=== PATIENT | female | born 1960 | race Caucasian/White ===

== ENCOUNTER 2018-01-05 23:08 | Observation (INO) | payer OTHER ==
[2018-01-06] MEDS ORDERED: NS 1,000 ML IV ONE (00:04)
--- NOTE | 2018-01-06 00:11 | EDPHY ---
H & P Stated Complaint: dizzy, nausea Time Seen by Provider: 01/05/18 23:23 HPI/ROS: HPI The patient presents with dizziness which began 4 days ago on January 02 at about 2:00 a.m. When she awoke to use the bathroom she noticed that she felt dizzy like the room was spinning and she was "gyrating". She went back to bed, however the dizziness has persisted ever since. It has been somewhat intermittent, she feels it worse at night. It feels as if she is drunk she says. She has not had any falls because of this. Her said she is walking with a wide-based gait at home. The dizziness is most severe when she turns her head to the left. She does not have any difficulty speaking, weakness of her arms or legs, confusion, or vomiting, though she has felt nauseated. She says that she has had a headache for many months now which is global and throbbing. It has become worse since her dizziness began 4 days ago. She is taking aspirin and ibuprofen for this with some improvement. She has not been drinking much fluid because she does not want after walk to the bathroom. She has been in bed for much of the last several days. She denies any changes to her hearing, tinnitus, recent URI type symptoms. She has not had any chest pain or shortness of breath, no leg swelling. She has no changes to her medications. She is relatively healthy and has no prior history of atrial fibrillation. REVIEW OF SYSTEMS 10 systems were reviewed and negative with the exception of the elements mentioned in the history of present illness. PMHx: History of pulmonary embolism in 2000 following a hysterectomy, she says her pulmonary function has been diminished ever since, takes vitamin-D supplements, primary care doctor is Dr. Meyer in [facility] Hx: Here with her PHYSICAL General Appearance: Alert, no distress Eyes: Pupils equal and round no pallor or injection ENT, Mouth: Mucous membranes moist Respiratory: There are no retractions, lungs are clear to auscultation Cardiovascular: Irregularly irregular Gastrointestinal: Abdomen is soft and non-tender, no masses, bowel sounds normal Neurological: A&Ox3, cranial nerves 2-12 intact, there is no nystagmus, dizziness is provoked with turning her head to the left, 5/5 strength in upper and lower extremities which is symmetric, normal finger to nose testing Skin: Warm and dry, no rashes Musculoskeletal: Neck is supple non tender Extremities: symmetrical, full range of motion Psychiatric: Patient is oriented X 3, there is no agitation Source: Patient Exam Limitations: No limitations - Personal History Current Tetanus Diphtheria and Acellular Pertussis (TDAP): Yes - Medical/Surgical History Hx Asthma: No Hx Chronic Respiratory Disease: No Hx Diabetes: No Hx Cardiac Disease: No Hx Renal Disease: No Hx Cirrhosis: No Hx Alcoholism: No Hx HIV/AIDS: No Hx Splenectomy or Spleen Trauma: No Other PMH: PE 2000 - Social History Smoking Status: Never smoked Constitutional: Initial Vital Signs Temperature (C) 36.3 C 01/05/18 23:15 Heart Rate 128 H 01/05/18 23:15 Respiratory Rate 20 01/05/18 23:15 Blood Pressure 184/105 H 01/05/18 23:15 O2 Sat (%) 94 01/05/18 23:15 O2 Delivery Mode Room Air Allergies/Adverse Reactions: No Known Allergies Allergy (Unverified 01/05/18 23:11) Home Medications: Medication Instructions Recorded NK [No Known Home Meds] 01/05/18 Medical Decision Making - Diagnostics EKG Interpretation: EKG: Complete interpretation has been separately recorded in the [email or web address] archive. Summary impression: Atrial fibrillation with rate of about 100-120 Imaging Results: Chest x-ray single view demonstrates mild cardiomegaly, interpreted by me, radiology interpretation pending. 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 Katz of Radiology. Imaging: Discussed imaging studies w/ financial services auditor Radiologist, I viewed and interpreted images myself Differential Diagnosis: This is a relatively healthy 57-year-old female with only significant past medical history provoked pulmonary embolism in 2000 who presents from home with 4 days of intermittent vertigo type symptoms which are somewhat positional associated with headache, nausea. On exam, she is in new onset atrial fibrillation with slightly fast rate in the 120s. She does not have any cerebellar findings on her neurologic exam, however CVA is a concern for me given her atrial fibrillation. Plan for IV fluid bolus, basic labs, chest x-ray CT scan of head. In the emergency department, patient received 1 L of normal saline with persistent atrial fibrillation with RVR. Thus, she was given diltiazem with improvement in her rate to the low 100s. She continued to remain symptomatic. CT scan of head did demonstrate old CVA without any signs of acute infarct. I do think she would benefit from an MRI for further evaluation of cerebellum. It is unclear if 4 days ago she had a CVA and that is what is causing her persistent vertigo with underlying atrial fibrillation as cause. She does not appear to have any signs or symptoms of acute pulmonary embolism, ACS, new heart failure as cause of atrial fibrillation. It could be that her atrial fibrillation is causing her to feel vertiginous as well. Given that she has had 4 days of symptoms, she is not a tPA candidate at this time. I will admit her to the hospitalist service for further evaluation. - Data Points Laboratory Results: Laboratory Results 01/06/18 00:13 01/06/18 00:13 01/06/18 01/06/18 01/06/18 00:22 00:17 00:13 WBC RBC Hgb Hct MCV MCH MCHC RDW Plt Count MPV Neut % (Auto) Lymph % (Auto) Elk % (Auto) Eos % (Auto) Baso % (Auto) Nucleat RBC Rel Count Absolute Neuts (auto) Absolute Lymphs (auto) Absolute Monos (auto) Absolute Eos (auto) Absolute Basos (auto) Absolute Nucleated RBC Immature Gran % Immature Gran # PT INR APTT D-Dimer Sodium 142 mEq/L mEq/L (135-145) Potassium 4.1 mEq/L mEq/L (3.3-5.0) Chloride 108 mEq/L mEq/L (97-110) Carbon Dioxide 25 mEq/l mEq/l (22-31) Anion Gap 9 mEq/L mEq/L (6-14) BUN 21 mg/dL mg/dL (7-23) Creatinine 0.9 mg/dL mg/dL (0.6-1.0) Estimated GFR > 60 Glucose 169 mg/dL H mg/dL (70-100) Calcium 9.6 mg/dL mg/dL (8.5-10.4) POC Troponin I 0.00 ng/mL ng/mL (0.00-0.08) NT-Pro-B Natriuret Pep 410 pg/mL H pg/mL (0-125) TSH 5.850 uIU/mL H uIU/mL (0.465-4.680) 01/06/18 01/06/18 00:13 00:13 WBC 7.34 10^3/uL 10^3/uL (3.80-9.50) RBC 4.84 10^6/uL 10^6/uL (4.18-5.33) Hgb 14.9 g/dL g/dL (12.6-16.3) Hct 44.5 % % (38.0-47.0) MCV 91.9 fL fL (81.5-99.8) MCH 30.8 pg pg (27.9-34.1) MCHC 33.5 g/dL g/dL (32.4-36.7) RDW 12.6 % % (11.5-15.2) Plt Count 215 10^3/uL 10^3/uL (150-400) MPV 11.8 fL H fL (8.7-11.7) Neut % (Auto) 62.4 % % (39.3-74.2) Lymph % (Auto) 27.2 % % (15.0-45.0) Elk % (Auto) 7.4 % % (4.5-13.0) Eos % (Auto) 2.0 % % (0.6-7.6) Baso % (Auto) 0.7 % % (0.3-1.7) Nucleat RBC Rel Count 0.0 % % (0.0-0.2) Absolute Neuts (auto) 4.58 10^3/uL 10^3/uL (1.70-6.50) Absolute Lymphs (auto) 2.00 10^3/uL 10^3/uL (1.00-3.00) Absolute Monos (auto) 0.54 10^3/uL 10^3/uL (0.30-0.80) Absolute Eos (auto) 0.15 10^3/uL 10^3/uL (0.03-0.40) Absolute Basos (auto) 0.05 10^3/uL 10^3/uL (0.02-0.10) Absolute Nucleated RBC 0.00 10^3/uL 10^3/uL (0-0.01) Immature Gran % 0.3 % % (0.0-1.1) Immature Gran # 0.02 10^3/uL 10^3/uL (0.00-0.10) PT 12.7 SEC SEC (12.0-15.0) INR 0.93 (0.83-1.16) APTT 24.6 SEC SEC (23.0-38.0) D-Dimer 0.28 ug/mLFEU ug/mLFEU (0.00-0.50) Sodium Potassium Chloride Carbon Dioxide Anion Gap BUN Creatinine Estimated GFR Glucose Calcium POC Troponin I NT-Pro-B Natriuret Pep TSH Medications Given: Sodium Chloride (Ns) 1,000 mls @ 100 mls/hr IV CONT ROSA Stop: 07/05/18 01:14 Last Admin: 01/06/18 02:29 Dose: 1,000 mls Diltiazem/Dextrose (Diltiazem 125mg/125ml (Premix)) 125 mls @ 0 mls/hr IV CONT ROSA; Per Protocol PRN Reason: Protocol Stop: 07/05/18 01:14 Last Admin: 01/06/18 02:29 Dose: 125 mls Discontinued Medications Diltiazem HCl (Cardizem 25 Mg/5 Ml Vial) 15 mg IVP EDNOW ONE Stop: 01/06/18 00:54 Last Admin: 01/06/18 00:56 Dose: 15 mg Sodium Chloride (Ns) 1,000 mls @ 0 mls/hr IV EDNOW ONE; Wide Open PRN Reason: Protocol Stop: 01/06/18 00:05 Last Admin: 01/06/18 00:19 Dose: 1,000 mls Point of Care Test Results: Chemistry 01/06/18 00:22 POC Troponin I 0.00 ng/mL ng/mL (0.00-0.08) Departure - Departure Disposition: [facility] Inpatient Acute Clinical Impression: Atrial fibrillation with rapid ventricular response, Vertigo Condition: Fair
[2018-01-06 00:28] LABS: PLATELET COUNT 215 10^3/uL (150-400)
[2018-01-06 00:38] LABS: INR 0.93 (0.83-1.16); PROTIME(PATIENT) 12.7 SEC (12.0-15.0)
[2018-01-06] MEDS ORDERED: DILTIAZEM 25 MG/5 ML VIAL IVP ONE (00:53)
[2018-01-06] MEDS ORDERED: ONDANSETRON 4 MG/2 ML VIAL IVP PRN (01:08)
[2018-01-06] MEDS ORDERED: PROMETHAZINE HCL 25 MG/ML INJ IVP PRN (01:08)
[2018-01-06] MEDS ORDERED: ONDANSETRON DISINTEGRATING 4 MG TAB PO PRN (01:08)
[2018-01-06] MEDS ORDERED: MECLIZINE HCL 25 MG TAB PO PRN (01:13)
[2018-01-06] MEDS ORDERED: DILTIAZEM HCL/D5W 125 ML IV SCH (01:15)
--- NOTE | 2018-01-06 02:04 | PDGENHP ---
History and Physical - Chief Complaint Dizziness - History of Present Illness 57 yo F w/ hx of migraines presents with dizziness. She tells me she has intermittently felt like the world is spinning around her for 4 days. The dizziness is worsened by turning her head. She has also had intermittent nausea related to this. During the first day she felt subjective fevers but denies other infectious symptoms. As mentioned previously she does have history of migraines. She denies other medical problems and does not take medications regularly. She has had no prior similar episodes. In the ED her neurologic evaluation is non-focal. Cardiac monitoring did reveal atrial fibrillation. The patient does not have an existing AF diagnosis. She states that she does feel an odd feeling of irregularity in her chest, but this has been going on for a long time and she thought it was normal. In addition, CTH demonstrates old stroke, which she has no knowledge of. She denies any focal neurologic symptoms at this time. Case discussed with ED physician Dr. Scott; records reviewed and summarized above. History Information - Allergies/Home Medication List Allergies/Adverse Reactions: No Known Allergies Allergy (Unverified 01/05/18 23:11) Home Medications: NK [No Known Home Meds] 01/05/18 [Last Taken Unknown] I have personally reviewed and updated: family history, medical history - Past Medical History migraines - Surgical History Reports: hysterectomy - Family History Positive for: CAD - Social History Smoking Status: Never smoked Review of Systems Review of Systems: ROS: 10pt was reviewed & negative except for what was stated in HPI & below Physical Exam Physical Exam: Temp Pulse Resp BP Pulse Ox 36.5 C 107 H 14 149/94 H 93 01/06/18 01:46 01/06/18 01:46 01/06/18 01:46 01/06/18 01:46 01/06/18 01:46 Constitutional: not in pain, obese Eyes: PERRL, EOMI Ears, Nose, Mouth, Throat: moist mucous membranes, no oral mucosal ulcers Cardiovascular: regular rate and rhythym, no murmur, rub, or gallop Respiratory: no respiratory distress, clear to auscultation Gastrointestinal: normoactive bowel sounds, soft, non-tender abdomen Skin: warm, normal color Musculoskeletal: full muscle strength, no muscle tenderness Neurologic: AAOx3, sensation intact bilaterally, CN II-XII Intact, No weakness, No numbness, No facial droop Psychiatric: interacting appropriately, not anxious Lab Data & Imaging Review 01/06/18 00:13 01/06/18 00:13 WBC 7.34 10^3/uL (3.80-9.50) 01/06/18 00:13 RBC 4.84 10^6/uL (4.18-5.33) 01/06/18 00:13 Hgb 14.9 g/dL (12.6-16.3) 01/06/18 00:13 Hct 44.5 % (38.0-47.0) 01/06/18 00:13 MCV 91.9 fL (81.5-99.8) 01/06/18 00:13 MCH 30.8 pg (27.9-34.1) 01/06/18 00:13 MCHC 33.5 g/dL (32.4-36.7) 01/06/18 00:13 RDW 12.6 % (11.5-15.2) 01/06/18 00:13 Plt Count 215 10^3/uL (150-400) 01/06/18 00:13 MPV 11.8 fL (8.7-11.7) H 01/06/18 00:13 Neut % (Auto) 62.4 % (39.3-74.2) 01/06/18 00:13 Lymph % (Auto) 27.2 % (15.0-45.0) 01/06/18 00:13 Stanley % (Auto) 7.4 % (4.5-13.0) 01/06/18 00:13 Eos % (Auto) 2.0 % (0.6-7.6) 01/06/18 00:13 Baso % (Auto) 0.7 % (0.3-1.7) 01/06/18 00:13 Nucleat RBC Rel Count 0.0 % (0.0-0.2) 01/06/18 00:13 Absolute Neuts (auto) 4.58 10^3/uL (1.70-6.50) 01/06/18 00:13 Absolute Lymphs (auto) 2.00 10^3/uL (1.00-3.00) 01/06/18 00:13 Absolute Monos (auto) 0.54 10^3/uL (0.30-0.80) 18 00:13 Absolute Eos (auto) 0.15 10^3/uL (0.03-0.40) 01/06/18 00:13 Absolute Basos (auto) 0.05 10^3/uL (0.02-0.10) 18 00:13 Absolute Nucleated RBC 0.00 10^3/uL (0-0.01) 01/06/18 00:13 Immature Gran % 0.3 % (0.0-1.1) 01/06/18 00:13 Immature Gran # 0.02 10^3/uL (0.00-0.10) 01/06/18 00:13 PT 12.7 SEC (12.0-15.0) 01/06/18 00:13 INR 0.93 (0.83-1.16) 01/06/18 00:13 APTT 24.6 SEC (23.0-38.0) 01/06/18 00:13 D-Dimer 0.28 ug/mLFEU (0.00-0.50) 01/06/18 00:13 Sodium 142 mEq/L (135-145) 01/06/18 00:13 Potassium 4.1 mEq/L (3.3-5.0) 01/06/18 00:13 Chloride 108 mEq/L (97-110) 01/06/18 00:13 Carbon Dioxide 25 mEq/l (22-31) 01/06/18 00:13 Anion Gap 9 mEq/L (6-14) 01/06/18 00:13 BUN 21 mg/dL (7-23) 01/06/18 00:13 Creatinine 0.9 mg/dL (0.6-1.0) 01/06/18 00:13 Estimated GFR > 60 01/06/18 00:13 Glucose 169 mg/dL (70-100) H 01/06/18 00:13 Calcium 9.6 mg/dL (8.5-10.4) 01/06/18 00:13 POC Troponin I 0.00 ng/mL (0.00-0.08) 01/06/18 00:22 NT-Pro-B Natriuret Pep 410 pg/mL (0-125) H 01/06/18 00:13 TSH 5.850 uIU/mL (0.465-4.680) H 01/06/18 00:17 Imaging Review: CTH Prelim: R post parietal focal atrophy c/w remote infarct nothing acute. ALLI Visualized and Interpreted EKG results: Yes EKG Interpretation: Positive for: other (Afib) Assessment & Plan Assessment: 57 yo F w/ hx of migraines presents with vertigo and found to be in atrial fibrillation. Plan: 1. Vertigo - Most likely peripheral, benign etiology noting lack of focal neurologic symptoms, positional exacerbation, and overall mild nature. She does have history of migraines so this could be contributing. In addition, she experienced subjective fevers a few days ago so viral etiology is also possible. However, noting new AF and imaging findings consistent with prior stroke, it is reasonable to rule out central etiology with MRI. Symptoms have been present for 4 days so she is well outside window for intervention. - Conservative management with mIVF, anti-emetics PRN - MRI brain ordered to rule out central etiology - Neurology consult placed noting imaging findings of prior stroke 2. Atrial fibrillation - Unclear if this is related to presenting symptoms. My suspicion is that she has been in atrial fibrillation for some time and is minimally symptomatic. She states that she has noticed an odd sensation in her chest for a long time but thought this was normal. [id number] of at least 3 so indicated for anticoagulation, especially noting evidence of prior stroke. - Monitor on telemetry - Diltiazem gtt overnight - TTE for further evaluation - Check TSH - MRI brain ordered to rule out acute stroke prior to starting anticoagulation 3. Remote CVA - CTH on admission reveals evidence of prior R parietal stroke. The patient has no knowledge of this and denies symptoms. - MRI as above - TTE w/ bubble ordered - Lipid panel, A1c with morning labs - Neurology consult placed - Will need ASA, statin Diet - Regular Code - Full Ppx - SCDs Dispo - Admit under observation status
[2018-01-06] MEDS: NS 1,000 ML IV SCH ×2 (02:29→11:37)
--- NOTE | 2018-01-06 06:16 | CPEKG ---
Test Reason : OPEN Blood Pressure : / mmHG Vent. Rate : 117 BPM Atrial Rate : 104 BPM P-R Int : 176 ms QRS Dur : 085 ms QT Int : 331 ms P-R-T Axes : 000 056 -15 degrees QTc Int : 462 ms Atrial fibrillation Confirmed by Josee Scott ([id number]) on 01/06/2018 6:16:26 AM Referred By: Confirmed By:Josee Scott
[2018-01-06 09:30] LABS: PLATELET COUNT 187 10^3/uL (150-400)
--- NOTE | 2018-01-06 11:00 | NEUROPROG ---
Assessment: HOSPITAL NEUROLOGY CONSULT REQUESTING: Tino Grady MD REASON: dizziness, abnormal CT HPI: 57 year old woman with a history of migraine who presented to the ED last night with 4 days of vertigo. She states 4 days ago she developed sudden onset of room-spinning dizziness associated with nausea. Dizziness worsened with head movement, particularly to the right. Severe bouts tended to last hours, though vertigo never completely subsided. She is feeling better this AM. She did note gait instability. No diplopia, vision loss, speech change, hearing change, weakness, sensory loss, OHARA. Denies prior history of vertigo. She was found to be in afib in the ED. CT head wo done in ED was interpreted as a chronic right posterior parietal wedge-shaped area of encephalomalacia. ROS: As per the HPI, otherwise a complete 12 point ROS was performed and is negative ALLERGIES AND MEDS: As recorded in the EMR - reviewed and reconciled PFSH: As per the intake H&P by Dr. Grady from today EXAM: VS reviewed in EMR GEN: WDWN laying in NAD HEENT: NCAT, sclera anicteric, conjunctiva not injected, MMM, oropharynx clear, no scalp tenderness NECK: supple, nontender, no meningismus CV: irreg irreg s1 s2 wo m/r/c/g. Carotid pulses 2+ wo bruit NEURO: MS: awake, alert, oriented to all spheres. Speech nondysarthric. No language disturbance. Follows commands. Attends to both sides. Recent/remote memory grossly intact. Mood euthymic. Good fund of knowledge. CN: pupils 3mm round and reactive. Unable to visualize fundi. VFF. Primary gaze centered. Full ocular motility. No nystagmus. No ptosis. Facial sensation preserved. Face symmetric. Hearing grossly intact to finger rub. Palatoglossal movements intact. Shoulder shrug and head turn strong. MOTOR: normal bulk/tone. No adventitial movements. Full power throughout. SENSORY: intact to all modalities throughout. No extinction. COORD: no ataxia FN/HS. Clarissa preserved. REFLEX: plantars down. No clonus. DTRS 3-/4. GAIT: deferred to PT safety eval DATA REVIEW: Labs reviewed in EMR PERSONALLY INTERPRETED RESULTS AND DATA: CT head wo - read as a posterior parietal wedge-shaped area of encephalomalacia , but on my read it looks more like volume global volume loss with head tilted creating asymmetry IMPRESSION AND RECOMMENDATIONS: // VERTIGO // AFIB Patient with newly discovered afib and relatively persistent vertigo. She is at risk for stroke with afib. MRI brain wo ordered - given persistence of symptoms, if this shows nothing acute then her sensation of vertigo may be peripheral or related to afib. In any event, she will need to be optimized from a stroke preventive standpoint given her afib. Will follow up on MRI and render further recommendations thereafter. Objective: Vital Signs Temp Pulse Resp BP Pulse Ox 36.8 C 107 H 20 133/81 H 93 01/06/18 08:00 01/06/18 08:00 01/06/18 08:00 01/06/18 08:00 01/06/18 08:00 Laboratory Results 01/06/18 09:20 01/06/18 07:38 01/05/18 01/06/18 01/07/18 05:59 05:59 05:59 Intake Total 1545 550 Balance 1545 550 PT 12.7 SEC (12.0-15.0) 01/06/18 00:13 INR 0.93 (0.83-1.16) 01/06/18 00:13 Allergies/Adverse Reactions: No Known Allergies Allergy (Unverified 01/05/18 23:11)
[2018-01-06] MEDS: ACETAMINOPHEN 325 MG TAB PO PRN ×3 (12:57→20:23)
[2018-01-06] MEDS: METOPROLOL TARTRATE 25 MG TAB PO SCH ×2 (12:58→20:23)
--- NOTE | 2018-01-06 14:10 | ECHO ---
[email or web address] [address] [address] Main: [phone] Fax: Transthoracic Echocardiogram Name: PATRICIA BARRIOS MR#: [id number] Study Date: 01/06/2018 Study Time: 08:28 AM Date of : 1960 Age: 57 year(s) Height: 162.6 cm (64 in.) Weight: 113.4 kg (250 lb.) BSA: 2.15 m2 Gender: Female Examination: Echo Indication: New atrial fibrillation/hx of stroke Image Quality: Contrast: Requested by: Tino Almodovar BP: 133 mmHg/81 mmHg Heart Rate: Rhythm: Indication: New atrial fibrillation/hx of stroke Procedure Staff Barn Operator: Charlotte Butler [facility] Reading Physician: Feliciano Briseno MD Requesting Provider: Conclusions: Normal size left ventricle. Normal global systolic LV function. The ejection fraction is estimated to be 60-65 %. No regional wall motion abnormality. The rhythm is atrial fibrillation. An agitated saline study was performed and was negative for intracardiac shunting. Mild mitral valve regurgitation is present. Mild tricuspid regurgitation is present. The pulmonary artery pressure is normal. Trivial pericardial effusion. There are no significant valvular abnormalities. Measurements: Chambers Valvular Assessment AV/MV Valvular Assessment TV/PV Normal Normal Normal Name Value Range Name Value Range Name Value Range Ao Nora (MM): 3.2 cm (2.2 cm-3.7 AV Vmax: 1.54 m/s (1 m/s-1.7 TR Vmax: 2.49 mm/s ( - ) cm) m/s) TR PGmax: 25 mmHg ( - ) IVSd (2D): 0.8 cm (0.6 cm-1.1 AV maxP mmHg ( - ) syst. PAP: 30 mmHg ( - ) cm) AV meanP mmHg ( - ) LVDd (2D): 5.1 cm (3.9 cm-5.3 MV E Vmax: 0.84 m/s ( - ) cm) MV A Vmax: 0.21 m/s ( - ) LVDs (2D): 3.7 cm (2.1 cm-4 MV E/A: 4.00 ( - ) cm) LVPWd (2D): 0.9 cm ( - ) LVEF (BP): 62 % (>=55 %) EF Range: 60-65 % Continued Measurements: Chambers Valvular Assessment AV/MV Valvular Assessment TV/PV Patient: PATRICIA BARRIOS Study Date: 01/06/2018 Page 1 of 2 08:28 AM Name Value Name Value Name Value LADs: 4.7 cm MV E/E' Septal: 7.80 CVP (est.): 5 mmHg LADs Lon.2 cm MV E/E' Lateral: 8.90 LA Area: 20.2 cm2 LA Volume: 50 ml LA Volume Index: 23.3 ml/m2 Findings: Left Ventricle: Normal size left ventricle. No LV hypertrophy. Normal global systolic LV function. The ejection fraction is estimated to be 60-65 %. No regional wall motion abnormality. Unable to assess diastolic dysfunction. The rhythm is atrial fibrillation. Right Ventricle: Normal size right ventricle. Left Atrium: The left atrium is normal in size. An agitated saline study was performed and was negative for intracardiac shunting. Right Atrium: The right atrium is normal in size. Mitral Valve: The mitral valve is normal in appearance and function. Mild mitral valve regurgitation is present. Aortic Valve: The aortic valve is normal in appearance and function. The aortic valve is tri-leaflet. Tricuspid Valve: The tricuspid valve is normal in appearance and function. Mild tricuspid regurgitation is present. The pulmonary artery pressure is normal. Pulmonic Valve: The pulmonic valve is normal in appearance and function. Trivial pulmonic valve regurgitation. Aorta: The aorta is normal. Pericardium: Trivial pericardial effusion. There is pericardial fat. Exam Comments: The rhythm is atrial fibrillation. (No Signature Object) Patient: PATRICIA BARRIOS Study Date: 01/06/2018 Page 2 of 2 08:28 AM [id number]
--- NOTE | 2018-01-06 14:47 | ASMTCMCOM ---
CM Note CM Note Notes: 01/06/2018 Case Management Note Pt admitted for new onset afib with RVR and vertigo with history of migraines. Discussed pt during rounds. present in room. Plans for MRI and ECHO today. There are no therapy evals ordered at this time. Case Management d/c poc: anticipating independent with follow up as directed. Case Management to follow. Date Signed: 01/06/2018 02:46 PM Electronically Signed By:Nancy Boss RN
--- NOTE | 2018-01-06 16:51 | HOSPPROG ---
Hospitalist Progress Note Assessment/Plan: 57 yo F w/ hx of migraines presents with vertigo and found to be in atrial fibrillation. 1. Atrial fibrillation: New diagnosis. TTE without valvular disease. [id number]= 2. - Switch dilt gtt to PO metop 25 bid - Start eliquis - Not candidate for cardioversion as unsure how long been in rhythm 2. Vertigo: No central process on imaging. - PT/OT, outpatient referral to ENT 3. Concern for CVA: MRI did not show old or new stroke. She does have some microvascular disease. 4. Hyperlipidemia: LDL 148. Discussed starting statin. 5. Type 2 diabetes: A1c 7.4%. Discussed metformin. She wants to think about this and a statin. VTE ppx: therapeutic anticoagulation Code: full Dispo: Switch to inpatient for monitoring of heart rate and bleeding with initiation of anticoagulation. Plan to dc tomorrow. Subjective: Still with mild dizziness, mild headache. No palpitations, sob, chest pain. Objective: Vital Signs Temp Pulse Resp BP Pulse Ox 36.6 C 86 12 126/80 H 92 01/06/18 16:00 01/06/18 16:00 01/06/18 16:00 01/06/18 16:00 01/06/18 16:00 Laboratory Results 01/06/18 09:20 01/06/18 07:38 01/05/18 01/06/18 01/07/18 05:59 05:59 05:59 Intake Total 1545 550 Balance 1545 550 PT 12.7 SEC (12.0-15.0) 01/06/18 00:13 INR 0.93 (0.83-1.16) 01/06/18 00:13 - Physical Exam Constitutional: no apparent distress, appears nourished, not in pain Eyes: PERRL, anicteric sclera, EOMI Ears, Nose, Mouth, Throat: moist mucous membranes, hearing normal, ears appear normal, no oral mucosal ulcers Cardiovascular: no murmur, rub, or gallop, irregularly irregular, No edema Respiratory: no respiratory distress, no rales or rhonchi, clear to auscultation Gastrointestinal: normoactive bowel sounds, soft, non-tender abdomen, no palpable masses Genitourinary: no bladder fullness, no bladder tenderness, no renal bruits Skin: no rashes or abrasions, no fluctuance, no induration Musculoskeletal: full muscle strength, no muscle tenderness, normal joint ROM Neurologic: AAOx3, sensation intact bilaterally Psychiatric: interacting appropriately, not anxious, not encephalopathic, thought process linear ICD10 Worksheet Patient Problems: Problems Problem Status Onset Atrial fibrillation with rapid ventricular response Acute Vertigo Acute
[2018-01-06] MEDS: APIXABAN 5 MG TAB PO SCH (20:23)
[2018-01-07] MEDS: ACETAMINOPHEN 325 MG TAB PO PRN (03:44)
[2018-01-07] MEDS: METOPROLOL TARTRATE 25 MG TAB PO SCH (09:19)
[2018-01-07] MEDS: APIXABAN 5 MG TAB PO SCH (09:19)
[2018-01-07] MEDS: NS 1,000 ML IV SCH (09:24)
[2018-01-07 11:26] VITALS: BP 124/76
--- NOTE | 2018-01-07 12:56 | ASDISCHSUM ---
Discharge Information Plan Status:Home with No Needs Medically Cleared to Leave: Discharge Date: CM D/C Disposition:Home, Routine, Self-Care ADT D/C Disposition:Home, Routine, Self-Care Projected Discharge Date: Transportation at D/C:Family Discharge Delay Reason: Follow-Up Date: Discharge Slot: Final Diagnosis: Placement Information Patient Contact Information Contact Name:MICHELLE Relationship: Address:[id number] [place] [address] Work Phone: City:[place] Alternate Phone: State/Zip Code:[place] [address] Email: Financial Information Financial Class:[facility] Primary [facility] Desc[facility] Primary Plan Number:[id number] Secondary Plan Desc: Secondary Plan Number: Assessment Information LACE LACE Length of stay for Answers: 1 day current admission Acuity / Level of Answers: Yes Care: Did the patient have an inpatient admission? Comorbidities - select Answers: Other Notes: Hx of PE all that apply # of Emergency department Answers: 1-2 visits in the last 6 months Score: 6 Date Signed: 01/07/2018 12:55 PM Electronically Signed By:Hazel Abarca [facility] CM Progress Note CM Note CM Note Notes: 01/06/2018 Case Management Note Pt admitted for new onset afib with RVR and vertigo with history of migraines. Discussed pt during rounds. present in room. Plans for MRI and ECHO today. There are no therapy evals ordered at this time. Case Management d/c poc: anticipating independent with follow up as directed. Case Management to follow. Date Signed: 01/06/2018 02:46 PM Electronically Signed By:Nancy Boss RN Intervention Information Intervention Type:*Incorrect Registration Date of Service:01/06/2018 11:46 AM Patient Type:Inpatient Staff Member:Ruthie Hong Hours: Discipline: Severity: Comment:
--- NOTE | 2018-01-07 13:02 | GDS ---
DIAGNOSIS: 1. Vertigo, likely peripheral. Follow up with ENT. 2. Atrial fibrillation. Discharge with anticoagulation and rate control. PROCEDURES DONE: 1. Echocardiogram. Normal size left ventricle, no LVH, and normal function. 2. MRI of the brain showing no acute stroke. 3. Head CT without contrast. CONSULTATIONS: Neurology. HOSPITAL COURSE: The patient is a 57-year-old with intermittent dizziness for several days. She has been slowly improving. On admission she was found to be in atrial fibrillation which is a new diagn osis for her. She was placed on anticoagulation and rate controlled with metoprolol. The above proc edures were performed. Her dizziness has persisted; however, it is slowly getting better and she can manage at home. Neurology did see her in consultation, reviewed the MRI and felt that this was a pe ripheral vertigo and recommended followup with ENT. The patient is aware of this and will do that. CONDITION ON DISCHARGE: Good, vital signs stable. DISCHARGE MEDICATIONS: Please see discharge medication form. FOLLOWUP: Followup will be with ENT as an outpatient. /[id number]/MODL
== END 2018-01-07 14:34 | disposition home or self-care (01) ==
LOC: INTOOBSV 01-06 01:08 → F2W 01-06 02:07
PROVIDERS: ADMIT Student in an Organized Health Care Education/Training Program; ATTEND Internal Medicine
DX: R42 Dizziness and giddiness (principal); I48.1 Persistent atrial fibrillation; E78.5 Hyperlipidemia, unspecified; E11.9 Type 2 diabetes mellitus without complications; Z86.711 Personal history of pulmonary embolism; Z86.718 Personal history of other venous thrombosis and embolism
CPT/HCPCS: 70450; 70551; 71045; 93005; 93306; 96361; 96374; 96375; 97116; 97161; 99285; G0378; 84484-PO; J2405

== ENCOUNTER 2018-01-09 14:27 | Day surgery (SDC) | payer OTHER ==
[2018-01-09] MEDS ORDERED: NS 500 ML IV ONE (14:30)
[2018-01-09] MEDS ORDERED: MIDAZOLAM 2 MG/2 ML VIAL IVP ONE (14:30)
[2018-01-09] MEDS ORDERED: ATROPINE SULFATE 1 MG/10 ML SYR IVP ONE (14:30)
[2018-01-09] MEDS ORDERED: BENZOCAINE UNIT DOSE SPRAY HURRICAINE MM ONE (14:30)
[2018-01-09] MEDS ORDERED: fentaNYL 100 MCG/2 ML INJ IVP ONE (14:30)
[2018-01-09 15:14] LABS: INR 1.06 (0.83-1.16)
[2018-01-09] MEDS ORDERED: ETOMIDATE 40 MG/20 ML INJ ONE (15:51)
--- NOTE | 2018-01-09 16:15 | PDPROPOC ---
Sedation Plan of Care Sedation Plan of Care: vital signs stable, mental status noted, patient educated of risks, benefits, alternatives, patient can tolerate sedation ASA Classification: ASA 3 Planned drugs: fentanyl, midazolam Mallampati Score: Class 2 Mallampati Reference Image: Patient passed 3-3-2 rule?: Yes
--- NOTE | 2018-01-09 16:15 | PDHPUP ---
History & Physical Update H&P update statement: This history and physical update is based on an assessment of the patient which was completed after admission or registration (within 24 hours), but prior to the surgery/procedure. H&P update: H&P reviewed & patient examined, no change in patient's condition since H&P completed
--- NOTE | 2018-01-09 16:37 | CPEKG ---
Test Reason : OPEN Blood Pressure : / mmHG Vent. Rate : 078 BPM Atrial Rate : 117 BPM P-R Int : 165 ms QRS Dur : 094 ms QT Int : 369 ms P-R-T Axes : 000 058 005 degrees QTc Int : 421 ms Atrial fibrillation Borderline T abnormalities, inferior leads Confirmed by Jaquan Harley ([id number]) on 01/09/2018 4:37:29 PM Referred By: Confirmed By:Jaquan Harley
[2018-01-09] MEDS ORDERED: fentaNYL 100 MCG/2 ML INJ ONE (16:55)
--- NOTE | 2018-01-10 07:40 | CPEKG ---
Test Reason : OPEN Blood Pressure : / mmHG Vent. Rate : 057 BPM Atrial Rate : 057 BPM P-R Int : 178 ms QRS Dur : 091 ms QT Int : 442 ms P-R-T Axes : 058 048 019 degrees QTc Int : 431 ms Sinus rhythm Confirmed by Jaquan Harley ([id number]) on 01/10/2018 7:39:56 AM Referred By: Confirmed By:Jaquan Harley
== END 2018-01-09 18:24 | disposition home or self-care (01) ==
LOC: FCATH 14:27
PROVIDERS: ATTEND Internal Medicine Cardiovascular Disease
PROC: 5A2204Z Restoration of Cardiac Rhythm, Single (ICD-10-PCS; principal; 2018-01-09)
DX: I48.91 Unspecified atrial fibrillation (principal); Z79.01 Long term (current) use of anticoagulants; Z79.899 Other long term (current) drug therapy; Z86.73 Personal history of transient ischemic attack (TIA), and cerebral infarction without residual deficits; Z86.711 Personal history of pulmonary embolism; Z87.891 Personal history of nicotine dependence
CPT/HCPCS: J0461; J2250; J3010

== ENCOUNTER 2018-01-14 08:04 | Day surgery (SDC) | payer OTHER ==
--- NOTE | 2018-01-14 08:16 | EDPHY ---
HPI/HX/ROS/PE/MDM Narrative: CHIEF COMPLAINT: Atrial fibrillation HPI: This patient is an anticoagulated (Eliquis) 57 year old female with recent diagnosis of atrial fibrillation after admission to this hospital 01/06/18 for dizziness and tachycardia. She underwent electrocardioversion 01/09/[address] Lopez, fire engineer, which was successful. Today, she states "I feel like my heart's out of rhythm again". Her symptoms began around 12:00 yesterday. She endorses dizziness and a cold sensation in her extremities, consistent with her afib symptoms prior to admission last week. Her dizzy sensation is compounded when she turns her head from side to side. She denies chest pain, shortness of breath, nausea, numbness or paresthesias, abdominal pain, urinary complaints, or other associated symptoms. REVIEW OF SYSTEMS: A comprehensive 10 system review of systems is otherwise negative aside from elements mentioned in the history of present illness and medical decision making. PMH: Atrial fibrillation, dx 01/06/18 (Eliquis). Hypertension (metoprolol). History of PE. Hysterectomy. SOCIAL HISTORY: . at bedside. Does not abuse tobacco, drugs, or alcohol. PHYSICAL EXAM: General:Patient is alert, in no acute distress. ENT:Eyes are normal to inspection. ENT inspection normal. Neck: Normal inspection. Full range of motion. Respiratory:No respiratory distress. Breath sounds normal bilaterally. Cardiovascular: [] Strong peripheral pulses. Normal cap refill. Abdomen:The abdomen is nontender to palpation. There are no peritoneal signs. There are normal bowel sounds. Back: Normal to inspection. No tenderness to palpation. Skin: Normal color. No rash. Warm and dry. Extremities: Normal appearance. Full range of motion. Neuro: Oriented x3. Normal motor function. Normal sensory function. ED Course: 57 y/o female with new onset atrial fibrillation diagnosed 01/06/18, s/p electrocardioversion 01/09/18, presents with recurrent symptoms similar to her initial afib presentation. IV established. Plan for EKG, labs including CBC, chemistries. Plan to administer 1L IV NS. EKG was ordered and interpreted by myself. Please see [employer] system for official reading. Atrial fibrillation. Ventricular rate 94. 8:[address] Briseno, fire engineer. Cardiology to consult. 10:30 Dr. Briseno, fire engineer, at bedside. He has evaluated the patient and will accept care at this time for electrocardioversion. Plan for outpatient discharge following the procedure. - Data Points Laboratory Results: Laboratory Results 01/14/18 08:30 01/14/18 08:30 01/14/18 01/14/18 08:30 08:30 WBC 5.76 10^3/uL 10^3/uL (3.80-9.50) RBC 5.01 10^6/uL 10^6/uL (4.18-5.33) Hgb 15.2 g/dL g/dL (12.6-16.3) Hct 45.4 % % (38.0-47.0) MCV 90.6 fL fL (81.5-99.8) MCH 30.3 pg pg (27.9-34.1) MCHC 33.5 g/dL g/dL (32.4-36.7) RDW 12.7 % % (11.5-15.2) Plt Count 212 10^3/uL 10^3/uL (150-400) MPV 11.8 fL H fL (8.7-11.7) Neut % (Auto) 59.4 % % (39.3-74.2) Lymph % (Auto) 28.5 % % (15.0-45.0) [place] % (Auto) 7.8 % % (4.5-13.0) Eos % (Auto) 3.3 % % (0.6-7.6) Baso % (Auto) 0.7 % % (0.3-1.7) Nucleat RBC Rel Count 0.0 % % (0.0-0.2) Absolute Neuts (auto) 3.42 10^3/uL 10^3/uL (1.70-6.50) Absolute Lymphs (auto) 1.64 10^3/uL 10^3/uL (1.00-3.00) Absolute Monos (auto) 0.45 10^3/uL 10^3/uL (0.30-0.80) Absolute Eos (auto) 0.19 10^3/uL 10^3/uL (0.03-0.40) Absolute Basos (auto) 0.04 10^3/uL 10^3/uL (0.02-0.10) Absolute Nucleated RBC 0.00 10^3/uL 10^3/uL (0-0.01) Immature Gran % 0.3 % % (0.0-1.1) Immature Gran # 0.02 10^3/uL 10^3/uL (0.00-0.10) Sodium 139 mEq/L mEq/L (135-145) Potassium 5.3 mEq/L H mEq/L (3.3-5.0) Chloride 106 mEq/L mEq/L (97-110) Carbon Dioxide 22 mEq/l mEq/l (22-31) Anion Gap 11 mEq/L mEq/L (6-14) BUN 16 mg/dL mg/dL (7-23) Creatinine 0.8 mg/dL mg/dL (0.6-1.0) Estimated GFR > 60 Glucose 158 mg/dL H mg/dL (70-100) Calcium 9.9 mg/dL mg/dL (8.5-10.4) Specimen Hemolysis 149 Medications Given: Discontinued Medications Sodium Chloride (Ns) 1,000 mls @ 0 mls/hr IV EDNOW ONE; Wide Open PRN Reason: Protocol Stop: 01/14/18 08:23 Last Admin: 01/14/18 08:39 Dose: 1,000 mls General Time Seen by Provider: 01/14/18 08:15 Initial Vital Signs: Initial Vital Signs Temperature (C) 36.5 C 01/14/18 08:07 Heart Rate 98 01/14/18 08:07 Respiratory Rate 18 01/14/18 08:07 Blood Pressure 162/101 H 01/14/18 08:07 O2 Sat (%) 92 01/14/18 08:07 O2 Delivery Mode Room Air Allergies/Adverse Reactions: No Known Allergies Allergy (Verified 01/14/18 08:06) Home Medications: Medication Instructions Recorded Herbals/Supplements -Info Only 1 ea PO DAILY 01/06/18 Apixaban [Eliquis] 5 mg PO BID #60 tab 01/07/18 Metoprolol Tartrate [Lopressor 25 25 mg PO BID #60 tab 01/07/18 mg (*)] Departure - Departure Disposition: To OP Cath/Surgery Clinical Impression: Atrial fibrillation Qualifiers: Atrial fibrillation type: paroxysmal Qualified Code(s): I48.0 - Paroxysmal atrial fibrillation Condition: Good Report Scribed for: Willie William Report Scribed by: Mihaela Pretty Date of Report: 01/14/18 Time of Report: 08:16 Physician Review and Approval Statement: Portions of this note were transcribed by an ED scribe. I personally performed the history, physical exam, and medical decision making; and confirm the accuracy of the information in the transcribed note.
[2018-01-14] MEDS ORDERED: NS 1,000 ML IV ONE (08:22)
[2018-01-14 08:46] LABS: PLATELET COUNT 212 10^3/uL (150-400)
[2018-01-14] MEDS ORDERED: ATROPINE SULFATE 1 MG/10 ML SYR IVP ONE ×2 (10:51)
[2018-01-14] MEDS ORDERED: FLECAINIDE ACETATE 100 MG TAB PO SCH ×2 (11:00→11:15)
[2018-01-14 11:13] VITALS: BP 137/79
--- NOTE | 2018-01-14 12:24 | PDANEPAE ---
ANE History of Present Illness 57 yo with a fib ANE Past Medical History - Cardiovascular History Hx Hypertension: No Hx Arrhythmias: Yes Hx Chest Pain: No Hx Coronary Artery / Peripheral Vascular Disease: No Hx CHF / Valvular Disease: No Hx Palpitations: No - Pulmonary History Hx COPD: No Hx Asthma/Reactive Airway Disease: No Hx Recent Upper Respiratory Infection: No Hx Oxygen in Use at Home: No Hx Sleep Apnea: No - Endocrine History Hx Diabetes: No Hypothyroid: No Hyperthyroid: No Obesity: severe - Renal History Hx Renal Disorders: No - Chronic Pain History Chronic Pain: No ANE Review of Systems Review of Systems: ANE Patient History - Allergies Allergies/Adverse Reactions: No Known Allergies Allergy (Verified 01/14/18 08:06) - Home Medications Home medications: home medication list seen and reviewed Home Medications: Herbals/Supplements -Info Only 1 ea PO DAILY 01/06/18 [Last Taken Unknown] - NPO status NPO Status: no food or drink >8 hours - Anes Hx Anes Hx: no prior problems - Smoking Hx Smoking Status: Former smoker - Alcohol Use Alcohol Use: None - Family Anes Hx Family Anes Hx: none ANE Labs/Vital Signs - Labs Result Diagrams: 01/14/18 08:30 01/14/18 08:30 - Vital Signs Blood Pressure: 137/79 Heart Rate: 85 Respiratory Rate: 16 O2 Sat (%): 93 Height: 162.56 cm Weight: 113.398 kg ANE Physical Exam - Airway Neck exam: FROM Mallampati Score: Class 2 Mouth exam: normal dental/mouth exam - Pulmonary Pulmonary: no respiratory distress, clear to auscultation - Cardiovascular Cardiovascular: irregularly irregular - ASA Status ASA Status: III ANE Anesthesia Plan Anesthesia Plan: GA with mask Total IV Anesthesia: Yes
[2018-01-14] MEDS ORDERED: PROPOFOL 200 MG/20 ML VIAL ONE (12:29)
[2018-01-14] MEDS ORDERED: NALOXONE HCL 0.4 MG/ML INJ IVP PRN (12:40)
--- NOTE | 2018-01-14 12:40 | PDCARD ---
Cardioversion Procedure Procedure: electrical cardioversion Indications: atrial fibrillation Consent: signed and in chart Anticoagulation: eliquis Procedural Details: Pads were placed in anterior-posterior position. Synchronized cardioversion attempt #1: 200J Synchronized cardioversion attempt #2: 300J Results: normal sinus rhythm Conclusions: successful cardioversion Patient Problems: Problems Problem Status Onset Atrial fibrillation Acute Atrial fibrillation with rapid ventricular response Acute Vertigo Acute
--- NOTE | 2018-01-14 12:41 | POSTANESTH ---
Post Anesthetic Evaluation Cardiovascular Status: Normal, Stable Respiratory Status: Normal, Stable Level of Consciousness/Mental Status: Can Participate in Eval Pain Control: Adequate, Prn Tx Ordered Nausea/Vomiting Control: Adequate, Prn Tx Ordered Complications Possibly Related to Anesthesia: None Noted
--- NOTE | 2018-01-14 12:45 | SOAPPROG ---
SODEJA Progress Note Assessment/Plan: Assessment: Nonvalvular Paroxysmal atrial fibrillation. She presents now with a recurrent episode of atrial fibrillation following a cardioversion done on the of this month. She has symptoms of fatigue and dizziness. Her heart rate is well controlled. She is on systemic anticoagulation in the form of Eliquis which she has taken regularly. Her previous echocardiogram has indicated that she has a structurally normal heart. She does have some features that may suggest obstructive sleep apnea. Plan: 1. She was started on flecainide 50 mg twice daily. 2. We will plan to continue her metoprolol and Eliquis. 3. As an outpatient I think she should have a careful workup for possible obstructive sleep apnea. 4. Depending on her clinical course she can be considered for ablation. 5. We will proceed with cardioversion this morning. 01/14/18 12:45 Subjective: Patient was seen and examined. Her chart was reviewed. She has been seen in the outpatient setting by Dr. Arturo Lopez and Donna Valle [employer] SUPERVIS[employer]. She has a history of nonvalvular paroxysm is a of atrial fibrillation. She underwent SHADIA/ cardioversion on the of this month with successful latter-day of sinus rhythm. Apparently, symptoms and atrial fibrillation include dizziness and fatigue. She did well following the procedure. She had recurrent symptoms of fatigue and dizziness earlier today and felt that she was back in atrial fibrillation. As result she came to the emergency department. On arrival she was in atrial fibrillation with a resting heart rate of just under 100 beats per minute. She was hemodynamically stable. She has not experienced any chest pain, chest pressure, chest heaviness or dyspnea. She has been taking her medications which include metoprolol and Eliquis on a regular basis. She did not eat today. Objective: Vital Signs Temp Pulse Resp BP Pulse Ox 36.8 C 85 16 137/79 H 93 01/14/18 11:10 01/14/18 12:40 01/14/18 12:40 01/14/18 12:40 01/14/18 12:40 Laboratory Results 01/14/18 08:30 01/14/18 08:30 01/13/18 01/14/18 01/15/18 05:59 05:59 05:59 Intake Total 1000 Balance 1000 Her ECG demonstrates atrial fibrillation with a controlled ventricular response and nonspecific ST and T changes. Physical Exam - Physical Exam General Appearance: WD/WN, alert, no apparent distress EENT: PERRL/EOMI, normal ENT inspection, pharynx normal, TMs normal Neck: non-tender, full range of motion, supple, normal inspection Respiratory: chest non-tender, lungs clear, normal breath sounds Cardiac/Chest: normal peripheral pulses, irregularly irregular Peripheral Pulses: 2+: carotid (R), carotid (L), femoral (R), femoral (L), dorsalis-pedis (R), dorsalis-pedis (L) Abdomen: normal bowel sounds, non-tender, soft Pelvic Exam: deferred Rectal: deferred Back: Normal inspection Skin: normal color, warm/dry Lymphatic: no adenopathy Extremities: normal range of motion, non-tender, normal inspection, normal capillary refill Neuro/Psych: no motor/sensory deficits, alert, normal mood/affect, oriented x 3 ICD10 Worksheet Patient Problems: Problems Problem Status Onset Atrial fibrillation Acute Atrial fibrillation with rapid ventricular response Acute Vertigo Acute
--- NOTE | 2018-01-14 15:12 | CPEKG ---
Test Reason : OPEN Blood Pressure : / mmHG Vent. Rate : 094 BPM Atrial Rate : 000 BPM P-R Int : 165 ms QRS Dur : 089 ms QT Int : 378 ms P-R-T Axes : 000 055 030 degrees QTc Int : 473 ms Atrial fibrillation Borderline T wave abnormalities Confirmed by Willie William ([id number]) on 01/14/2018 3:11:45 PM Referred By: Confirmed By:Willie William
--- NOTE | 2018-01-14 18:34 | CPEKG ---
Test Reason : OPEN Blood Pressure : / mmHG Vent. Rate : 055 BPM Atrial Rate : 055 BPM P-R Int : 183 ms QRS Dur : 084 ms QT Int : 460 ms P-R-T Axes : 059 047 033 degrees QTc Int : 440 ms Sinus rhythm Borderline T abnormalities, anterior leads Apparent nonconducted pacer spikes Confirmed by Miriam Cha ([id number]) on 01/14/2018 6:34:10 PM Referred By: Confirmed By:Miriam Cha
== END 2018-01-14 13:51 | disposition home or self-care (01) ==
LOC: FCATH 11:30
PROVIDERS: ATTEND Internal Medicine Cardiovascular Disease
PROC: 5A2204Z Restoration of Cardiac Rhythm, Single (ICD-10-PCS; principal; 2018-01-14)
DX: I48.0 Paroxysmal atrial fibrillation (principal); I10 Essential (primary) hypertension; E66.01 Morbid (severe) obesity due to excess calories; Z79.01 Long term (current) use of anticoagulants; Z86.711 Personal history of pulmonary embolism; Z87.891 Personal history of nicotine dependence
CPT/HCPCS: J2704

== ENCOUNTER → 2018-01-22 | Day surgery (SDC) | payer OTHER ==
[~2018-01-22] MED LIST: ATROPINE SULFATE 1 MG/10 ML SYR IVP ONE; IOPAMIDOL (ISOVUE 370) 100 ML BTL IV ONE; LIDOCAINE 2% 5 ML SDV ONE; MIDAZOLAM 2 MG/2 ML VIAL IVP ONE; NS 500 ML IV ONE; PROPOFOL/EMULSION 500 MG/50 ML BOTTLE IV ONE; fentaNYL 100 MCG/2 ML INJ IVP ONE
--- NOTE | 2018-01-22 12:50 | PDANEPAE ---
ANE Past Medical History - Cardiovascular History Hx Hypertension: No Hx Arrhythmias: Yes Hx Chest Pain: No Hx Coronary Artery / Peripheral Vascular Disease: No Hx CHF / Valvular Disease: No Hx Palpitations: No - Pulmonary History Hx COPD: No Hx Asthma/Reactive Airway Disease: No Hx Recent Upper Respiratory Infection: No Hx Oxygen in Use at Home: No Hx Sleep Apnea: No - Endocrine History Hx Diabetes: No - Renal History Hx Renal Disorders: No - Chronic Pain History Chronic Pain: No ANE Review of Systems Review of Systems: ANE Patient History - Allergies Allergies/Adverse Reactions: No Known Allergies Allergy (Verified 01/14/18 08:06) - Home Medications Home Medications: Herbals/Supplements -Info Only 1 ea PO DAILY 01/06/18 [Last Taken Unknown] Flecainide Acetate 01/22/18 [Last Taken 01/22/18 05:00] - Smoking Hx Smoking Status: Former smoker ANE Labs/Vital Signs - Labs Result Diagrams: 01/22/18 12:00 - Vital Signs Height: 162.56 cm Weight: 113.398 kg ANE Physical Exam - Airway Neck exam: FROM Mallampati Score: Class 3 Mouth exam: normal dental/mouth exam - Pulmonary Pulmonary: no respiratory distress, no rales or rhonchi, clear to auscultation - Cardiovascular Cardiovascular: irregularly irregular - ASA Status ASA Status: III ANE Anesthesia Plan Anesthesia Plan: GA with mask Total IV Anesthesia: Yes
[2018-01-22 12:51] LABS: INR 1.18 (0.83-1.16); PROTIME(PATIENT) 15.2 SEC (12.0-15.0)
--- NOTE | 2018-01-22 13:43 | PDTEE1 ---
SHADIA Cardioversion Procedure Procedure: electrical cardioversion, transesophageal echo Indications: atrial fibrillation Consent: signed and in chart Anticoagulation: eliquis Procedural Details: Sedation provided by the anesthesia service. Pads were placed in anterior- posterior position. SHADIA probe was advanced and standard images obtained. There is no evidence of left atrial or left atrial appendage thrombus. Synchronized cardioversion attempt #1: 200J Results: normal sinus rhythm Conclusions: successful SHADIA cardioversion Conclusion Comment: There is an abnormality seen in the patient's descending thoracic aorta. This appears to be thrombus. A contrast CT of the thoracic aorta will be ordered stat to rule out thrombus or dissection. Patient currently in stable condition. Patient Problems: Problems Problem Status Onset Atrial fibrillation Acute Atrial fibrillation with rapid ventricular response Acute Vertigo Acute
--- NOTE | 2018-01-22 14:05 | ECHO ---
[email or web address] [address] [address] Main: [phone] Fax: Transesophageal Echocardiography Name: PATRICIA BARRIOS MR#: [id number] Study Date: 01/22/2018 Study Time: 01:13 PM Date of : 1960 Age: 57 year(s) Height: ( ) Weight: ( ) BSA: Gender: Female Examination: SHADIA Indication: cardioversion Image Quality: Adequate Contrast: Requested by: Maria D Childers Heart Rate: Rhythm: BP: / Procedure Staff Supervisor Irrigation: Anabell Rueda [facility] Reading Physician: Maria D Childers MD Requesting Provider: SHADIA Exam Details Conclusions: Low normal left ventricular systolic function. The ejection fraction is visually estimated to be 50 %. No regional wall motion abnormality. Normal size right ventricle. The left atrium is moderately dilated. No thrombus in left appendage. The right atrium is moderately dilated. Moderate mitral valve regurgitation is present. The aortic valve is tri-leaflet. There is no significant aortic valve regurgitation. No aortic valve stenosis is present. Mild tricuspid regurgitation is present. Proceed with cardioversion. Patient will have a stat CT angiogram of thoracic aorta prior to discharge. Measurements: Chambers Valvular Assessment AV/MV Valvular Assessment TV/PV Normal Normal Normal Name Value Range Name Value Range Name Value Range Visual EF: 50 % Additional Measurements: Valvular Assessment AV/MV Patient: PATRICIA BARRIOS Study Date: 01/22/2018 Page 1 of 2 01:13 PM Name Value MR PISA radius: 5 mm Findings: Left Ventricle: Normal size left ventricle. Low normal left ventricular systolic function. The ejection fraction is visually estimated to be 50 %. No regional wall motion abnormality. Right Ventricle: Normal size right ventricle. Normal RV function. Left Atrium: The left atrium is moderately dilated. Left Atrial Appendage: The left atrial appendage is unilobular. Good color flow doppler in the left atrial appendage. No thrombus in left appendage. Right Atrium: The right atrium is moderately dilated. Mitral Valve: The mitral valve is normal in appearance and function. Moderate mitral valve regurgitation is present. No mitral stenosis is present. Aortic Valve: The aortic valve is tri-leaflet. There is no significant aortic valve regurgitation. No aortic valve stenosis is present. Tricuspid Valve: The tricuspid valve is normal in appearance and function. Mild tricuspid regurgitation is present. Aorta: In multiple views of the descending thoracic aorta there is echodensity concerning for thrombus. No obvious dissection flap seen. . l1n (No Signature Object) Patient: PATRICIA BARRIOS Study Date: 01/22/2018 Page 2 of 2 01:13 PM [id number]
--- NOTE | 2018-01-22 15:40 | CPEKG ---
Test Reason : OPEN Blood Pressure : / mmHG Vent. Rate : 098 BPM Atrial Rate : 101 BPM P-R Int : 144 ms QRS Dur : 095 ms QT Int : 480 ms P-R-T Axes : 000 071 016 degrees QTc Int : 614 ms Atrial fibrillation-- New since January 14, 2018 Nonspecific repol abnormality, inferior leads Prolonged QT interval Confirmed by Estuardo Adrian ([id number]) on 01/22/2018 3:39:41 PM Referred By: Confirmed By:Estuardo Adrian
--- NOTE | 2018-01-22 15:41 | CPEKG ---
Test Reason : OPEN Blood Pressure : / mmHG Vent. Rate : 051 BPM Atrial Rate : 051 BPM P-R Int : 216 ms QRS Dur : 099 ms QT Int : 477 ms P-R-T Axes : 053 058 041 degrees QTc Int : 440 ms Sinus rhythm -- Restored since January 22, 2018, 11:52 Prolonged NH interval Confirmed by Estuardo Adrian ([id number]) on 01/22/2018 3:41:06 PM Referred By: Confirmed By:Estuardo Adrian
== END | disposition home or self-care (01) ==
LOC: FCATH 11:38
PROVIDERS: ATTEND Internal Medicine Cardiovascular Disease
DX: I48.91 Unspecified atrial fibrillation (principal); I51.3 Intracardiac thrombosis, not elsewhere classified
CPT/HCPCS: J2704; Q9967

== ENCOUNTER → 2018-08-12 | Outpatient (CLI) | payer OTHER | LOC: FIMAGING 07:48 ==